=== PATIENT | male | born 1985 | race Caucasian/White ===

== ENCOUNTER 2018-07-26 11:29 | Emergency (ER) | payer SELFPAY ==
[2018-07-26 11:52] VITALS: RESP 18; TEMP 99.1
[2018-07-26 12:43] LABS: BASO % 0.5 % (0.0-2.0); EOS # 0.1 K/uL (0.0-0.7); EOS % 1.1 % (0.0-4.0); HEMOGLOBIN 14.8 g/dL (12.0-18.0); LYMPH # 2.2 K/uL (1.0-4.3); LYMPH % 21.3 % (20.0-40.0); MEAN CELL VOLUME 79.1 fL (80.0-94.0); MEAN CORPUSCULAR HEMOGLOBIN 25.9 pg (27.0-31.0); MEAN CORPUSCULAR HGB CONC 32.8 g/dL (33.0-37.0); MEAN PLATELET VOLUME 8.8 fL (7.2-11.7); MONO # 0.8 K/uL (0.0-0.8); MONO % 7.9 % (0.0-10.0); NEUT # 7.1 K/uL (1.8-7.0); NEUT % 69.2 % (50.0-75.0); NRBC % 0.2 % (0.0-2.0); RBC 5.73 Mil/uL (4.40-5.90); RED CELL DISTRIBUTION WIDTH 16.9 % (11.5-14.5); WHITE BLOOD COUNT 10.3 K/uL (4.8-10.8)
[2018-07-26 12:55] LABS: ALB/GLOB RATIO 1.5 (1.0-2.1); ALBUMIN 4.3 g/dL (3.5-5.0); ALT/SGPT 10 U/L (21-72); AST/SGOT 27 U/L (17-59); BLOOD UREA NITROGEN 9 mg/dL (9-20); CALCIUM 9.4 mg/dl (8.6-10.4); GFR NON-AFRICAN AMERICAN > 60
--- NOTE | 2018-07-26 13:07 | C.PDOC ---
History Of Present Illness 33 years old male presents to ED for complaints of left knee swelling associated with fever that began 5 days ago. Denies injury, unprotected sex, sore throat, or any other complaints. Patient also reports he has had low grade fevers for few years. Time Seen by Provider: 07/26/18 12:23 Chief Complaint (Nursing): Lower Extremity Problem/Injury History Per: Patient History/Exam Limitations: no limitations Onset/Duration Of Symptoms: Days (5) Current Symptoms Are (Timing): Still Present Recent travel outside of the [place]: No Past Medical History Reviewed: Historical Data, Nursing Documentation, Vital Signs Vital Signs: Last Vital Signs Temp 99.1 F 07/26/18 11:50 Pulse 90 07/26/18 11:50 Resp 18 07/26/18 11:50 BP 108/70 07/26/18 11:50 Pulse Ox 100 07/26/18 11:50 - Medical History PMH: No Chronic Diseases Surgical History: No Surg Hx Family History: States: No Known Family Hx - Social History Hx Alcohol Use: Yes Hx Substance Use: No - Immunization History Hx Tetanus Toxoid Vaccination: No Hx Influenza Vaccination: No Hx Pneumococcal Vaccination: No Review Of Systems Except As Marked, All Systems Reviewed And Found Negative. Constitutional: Positive for: Fever. Negative for: Chills Gastrointestinal: Negative for: Nausea, Vomiting, Abdominal Pain, Diarrhea Musculoskeletal: Positive for: Other (Left knee swelling ) Skin: Negative for: Rash Neurological: Negative for: Weakness, Numbness Physical Exam - Physical Exam Appears: Non-toxic, No Acute Distress Skin: Normal Color, Warm, Dry, No Rash Head: Atraumatic, Normacephalic Eye(s): bilateral: Normal Inspection, PERRL, EOMI Oral Mucosa: Moist Neck: Normal ROM, Supple Chest: Symmetrical, No Tenderness Cardiovascular: Rhythm Regular, No Murmur Respiratory: Normal Breath Sounds, No Rales, No Rhonchi, No Wheezing Gastrointestinal/Abdominal: Soft, No Tenderness Extremity: Normal ROM, Other (Left knee effusion, mild erythema, warm to touch. ) Extremity: Bilateral: Normal ROM Pulses: Left Radial: Normal, Right Radial: Normal Neurological/Psych: Oriented x3, Normal Speech Gait: Steady ED Course And Treatment - Laboratory Results Result Diagrams: 07/26/18 12:37 07/26/18 12:37 Lab Results: Total Bilirubin 0.3 mg/dL (0.2-1.3) 07/26/18 12:37 AST 27 U/L (17-59) 07/26/18 12:37 ALT 10 U/L (21-72) L 07/26/18 12:37 Alkaline Phosphatase 65 U/L (38-126) 07/26/18 12:37 Total Protein 7.1 g/dL (6.3-8.3) 07/26/18 12:37 Albumin 4.3 g/dL (3.5-5.0) 07/26/18 12:37 Globulin 2.8 gm/dL (2.2-3.9) 07/26/18 12:37 Albumin/Globulin Ratio 1.5 (1.0-2.1) 07/26/18 12:37 O2 Sat by Pulse Oximetry: 100 (RA) Pulse Ox Interpretation: Normal Procedure: Blank - Time Out Time Out: Side verified, Site verified, Patient ID confirmed, Sterile procedures obs. - Procedure Procedure:: Synovial fluid aspiration of left knee - Consent obtained: Consent obtained: Verbal - Performed by: Performed by:: Attending physician - Anesthetic Technique Anesthetic Technique: Local - Topical: Local/Regional Anesthetic:: Lidocaine 1% - Needle Size Needle Size:: 19 gauge - Result Result: Successful - Post-Procedure Post-procedure:: Other (25 cc of clear yellow fluid aspirated. Sent to lab for WBCs ) - Patient Tolerated Procedure Patient Tolerated Procedure:: Well (Well tolerated and successful) Medical Decision Making Medical Decision Making: Plan: * Blood work * Blood culture * Urinalysis Progress: 17:50: Spoke with Dr. Preciado ([facility]) which recommended nebulizer treatment then d/c home. Patient advised to follow up and recommended [facility]. Patient is stable for discharge and will be discharged. Return if symptoms persist or worsen. Disposition Discussed With : Ray Preciado III Comment: D/c home, f/u [facility] Counseled Patient/Family Regarding: Studies Performed, Diagnosis, Need For Followup, Rx Given - Disposition Referrals: [facility] [Outside] Disposition: HOME/ ROUTINE Disposition Time: 17:54 Condition: STABLE Prescriptions: Amoxicillin/Clavulanate [Augmentin 875 MG-125 MG] 1 tab PO BID #14 tab Naproxen [EC-Naprosyn] 500 mg PO BID 5 Days tablet. Instructions: Osteoarthritis, Knee Immobilizer (DC) Forms: [facility] (Greenlandic), General Discharge Instructions - Clinical Impression Clinical Impression: Arthritis - Scribe Statement The provider has reviewed the documentation as recorded by the Scribe Roberto Joseph All medical record entries made by the Scribe were at my direction and personally dictated by me. I have reviewed the chart and agree that the record accurately reflects my personal performance of the history, physical exam, medical decision making, and the department course for this patient. I have also personally directed, reviewed, and agree with the discharge instructions and [email or web address]
[2018-07-26 13:33] LABS: SQUAMOUS EPITHIAL < 1 /hpf (0-5); URINE BILIRUBIN NEGATIVE (NEGATIVE); URINE BLOOD 1+ (NEGATIVE); URINE CLARITY Clear (Clear); URINE COLOR Straw (YELLOW); URINE GLUCOSE (UA) NORMAL (Normal); URINE LEUKOCYTE ESTERASE NEG Leu/uL (Negative); URINE PROTEIN NEGATIVE (NEGATIVE); URINE UROBILINOGEN NORMAL mg/dL (0.2-1.0)
[2018-07-26] MEDS ORDERED: Lidocaine 1% Inj (20ml) INFIL ONE (14:48)
[2018-07-26] MEDS ORDERED: Lidocaine Hydrochloride 10 ML INJ ONE (15:18)
[2018-07-26 15:35] LABS: FLUID TYPE SYNOVIAL FLUID
[2018-07-26 16:20] LABS: SF GROSS APPEARANCE CLOUDY (CLEAR)
[2018-07-26 17:22] LABS: SYNOVIAL FLUID MONO/MACROPHAGE 5 % (0-0)
[2018-07-26 18:33] VITALS: BP 112/69; PULSE 86; O2SAT 99
--- NOTE | 2018-07-27 10:16 | RAD ---
PROCEDURE: Left Knee Radiographs. Two views. HISTORY: pain COMPARISON: Will. FINDINGS: BONES: No acute displaced fracture. JOINTS: No dislocation. JOINT EFFUSION: Small to moderate suprapatellar joint effusion. OTHER FINDINGS: None. IMPRESSION: Small to moderate suprapatellar joint effusion. No acute displaced fracture or dislocation. If symptoms persist, or if there is continued clinical concern, x-ray follow-up in 7-10 days should be considered.
== END 2018-07-26 18:33 | disposition home or self-care (01) ==
LOC: C.ER 11:29
DX: M13.862 Other specified arthritis, left knee (principal)
CPT/HCPCS: 20610; 73560; 80053; 81001; 84560; 85025; 87040; 87491; 87591; 89051; 96374; 99285; J0696